=== PATIENT | male | born 1975 | race American Indian/Alaskan Native ===

== ENCOUNTER 2017-05-02 11:23 | Emergency (ER) | payer OTHER ==
--- NOTE | 2017-05-02 14:00 | Emergency Department Report ---
- General Chief Complaint: Wound/Laceration Stated Complaint: LIP PACERATION Time Seen by Provider: 05/02/17 13:59 Source: patient Mode of arrival: Ambulatory Limitations: No Limitations - History of Present Illness Location: face - Related Data Previous Rx's Medication Instructions Recorded Last Taken Type Amoxicillin/K Clav Tab [Augmentin 1 tab PO Q12HR #10 tab 05/02/17 Unknown Rx 875 mg] Bacitracin Zinc [Antibiotic] 1 applicatio TP BID #1 oint...g. 05/02/17 Unknown Rx Ibuprofen [Motrin] 800 mg PO Q8HR PRN #30 tablet 05/02/17 Unknown Rx Allergies Allergy/AdvReac Type Severity Reaction Status Date / Time No Known Allergies Allergy Unverified 05/02/17 11:29 ED Review of Systems ROS: Stated complaint: LIP PACERATION Other details as noted in HPI ED Past Medical Hx - Past Medical History Hx Hypertension: Yes - Surgical History Past Surgical History?: No - Social History Smoking Status: Current Every Day Smoker Substance Use Type: None - Medications Home Medications: Home Medications Medication Instructions Recorded Confirmed Last Taken Type Amoxicillin/K Clav Tab [Augmentin 1 tab PO Q12HR #10 tab 05/02/17 Unknown Rx 875 mg] Bacitracin Zinc [Antibiotic] 1 applicatio TP BID #1 oint...g. 05/02/17 Unknown Rx Ibuprofen [Motrin] 800 mg PO Q8HR PRN #30 tablet 05/02/17 Unknown Rx ED Physical Exam - General Limitations: No Limitations ED Course Vital Signs 05/02/17 11:29 Temperature 98.4 F Pulse Rate 108 H Respiratory 16 Rate Blood Pressure 182/96 O2 Sat by Pulse 98 Oximetry ED Medical Decision Making - Medical Decision Making A/P: Lower lip laceration, asymptomatic hypertension 1-good wound closure achieved with nylon sutures. Sutures to be removed in 7 days 2-short course of Augmentin as patient had penetrating lip injury 3-I advised patient to return to the ED for any pus drainage from lip any fevers chills significant swelling or persistent bleeding from lip 4-topical antibiotic ointment to outer lip 5- tdap updated 6- patient does not report any headache dizziness blurry vision nausea vomiting abdominal pain, chest pain, palpitations. I advised patient to follow up with his primary care doctor for management of his hypertension Critical care attestation.: If time is entered above; I have spent that time in minutes in the direct care of this critically ill patient, excluding procedure time. ED Disposition Clinical Impression: Laceration of lip Qualifiers: Encounter type: initial encounter Qualified Code(s): S01.511A - Laceration without foreign body of lip, initial encounter Disposition: TO HOME OR SELFCARE Condition: Stable Instructions: Suture Care (ED), Laceration (ED), Hypertension (ED) Prescriptions: Amoxicillin/K Clav Tab [Augmentin 875 mg] 1 tab PO Q12HR #10 tab Bacitracin Zinc [Antibiotic] 1 applicatio TP BID #1 oint...g. Ibuprofen [Motrin] 800 mg PO Q8HR PRN #30 tablet PRN Reason: Pain Referrals: [facility] [Provider Group] - 3-5 Days [facility] [Outside] - 3-5 Days Forms: Work/School Release Form(ED)
[2017-05-02] MEDS ORDERED: XYLOCAINE 2% INFILTRATI ONE (14:43)
[2017-05-02] MEDS ORDERED: BOOSTRIX IM ONE (14:47)
[2017-05-02] MEDS ORDERED: TRIPLE ANTIBIOTIC TP ONE (14:57)
[2017-05-02 16:30] VITALS: BP 205/117
== END 2017-05-02 16:28 | disposition home or self-care (01) ==
LOC: ED 11:23
DX: S01.511A Laceration without foreign body of lip, initial encounter (principal); I10 Essential (primary) hypertension; F17.200 Nicotine dependence, unspecified, uncomplicated; X58.XXXA Exposure to other specified factors, initial encounter; Y93.9 Activity, unspecified; Y92.9 Unspecified place or not applicable; Y99.9 Unspecified external cause status
CPT/HCPCS: 90471; 90715; A6250